=== PATIENT | female | born 1935 | race Caucasian/White ===

== ENCOUNTER 2017-05-23 11:12 | Emergency (ER) | payer OTHER ==
[~2017-05-23] VITALS: Ht 157.5 cm; Wt 42.6 kg
[~2017-05-23 11:12] MED LIST: CALCIUM500 MG PO; CEROVITE SENIO1 EACH PO
[2017-05-23 12:12] VITALS: BP 151/62
== END 2017-05-23 12:14 | disposition home or self-care (01) ==
LOC: ER 11:12
DX: Z48.02 Encounter for removal of sutures (principal); Z90.711 Acquired absence of uterus with remaining cervical stump; F10.99 Alcohol use, unspecified with unspecified alcohol-induced disorder

== ENCOUNTER 2019-11-05 00:06 | Emergency (ER) | payer OTHER ==
[~2019-11-05] VITALS: Ht 154.9 cm; Wt 38.7 kg
[2019-11-05 00:07] VITALS: BP 152/80
== END 2019-11-05 02:25 | disposition home or self-care (01) ==
LOC: ER 00:06
DX: S01.01XA Laceration without foreign body of scalp, initial encounter (principal); Z90.711 Acquired absence of uterus with remaining cervical stump; W18.39XA Other fall on same level, initial encounter; Y93.89 Activity, other specified; Y92.091 Bathroom in other non-institutional residence as the place of occurrence of the external cause; Y99.8 Other external cause status